=== PATIENT | male | born 1960 | race Caucasian/White ===

== ENCOUNTER 2016-06-01 08:52 | Inpatient (IN) ==
[2016-06-01] MEDS ORDERED: SODIUM CHLORIDE 0.9% 1,000 ML IV STA (09:59)
[2016-06-01 10:10] LABS: Basophils % 0.3 % (0.0-0.8); Eosinophils % 0.5 % (0.00-10.9); Hematocrit 48.6 VOL% (42.0-52.0); Hemoglobin 15.8 GM/DL (14.0-18.0); Immature Granulocytes % 0.5 %; Immature Granulocytes Absolute 0.04 #; Lymphocytes # 1.5 10*3/uL (1.4-4.0); Lymphocytes % 19.3 % (21.2-54.2); Mean Corpuscular HGB Conc 32.5 GM/DL (32-36); Mean Corpuscular Hemoglobin 30 PG (27-34); Mean Corpuscular Volume 90.8 FL (87-102); Mean Platelet Volume 9.8 FL (9.6-12.0); Monocytes # 0.6 10*3/uL (0.11-0.8); Monocytes % 7.9 % (1.7-12.7); Neutrophils # 5.6 10*3/uL (1.4-7.4); Neutrophils % 71.5 % (38.7-73.9); Platelet Count 242 T/CUMM (130-400); Red Blood Count 5.35 MC/CUMM (3.8-5.5); Red Cell Distribution Width 13.2 % (9.3-17.3); White Blood Count 7.8 T/CUMM (4-12)
[2016-06-01 10:16] LABS: Apearance,Urine CLEAR (Clear); Bilirubin,Urine Negative (Negative); Blood, Urine Negative (Negative); Glucose,Urine (UA) Negative (Negative); Ketones,Urine Negative (Negative); Mucus,Urine Occasional /LPF (Occasional); Nitrite,Urine Negative (Negative); Protein,Urine Negative; RBC,Urine 6 /HPF (0-4); Urine Color Yellow (Yellow); Urine Specific Gravity 1.023 (1.001-1.035); WBC,Urine 1 /HPF (0-6)
[2016-06-01 10:23] LABS: Alanine Aminotransferase 49 U/L (16-61); Albumin 4.3 G/DL (3.4-5.0); Alkaline Phosphatase 69 U/L (45-117); Aspartate Amino Transferase 21 U/L (0-37); Blood Urea Nitrogen 17 MG/DL (7-18); Calcium 8.9 MG/DL (8.5-10.1); Glucose 110 MG/DL (74-106); Osmolality,Calculated 288.8 MOS/KG (273-304); Potassium 4.3 MMOL/L (3.5-5.1); Sodium 144 MMOL/L (136-145); Total Protein 7.7 G/DL (6.4-8.3)
[2016-06-01 10:28] LABS: Ammonia 35 UMOL/L (11-32)
--- NOTE | 2016-06-01 10:28 | CT Report ---
History: Confusion, altered mental status Date: 06/01/2016 Study: CT head without contrast Comparison exam: CT head April 12, [address] sections were obtained through the head without IV contrast. Total DLP measures 1025.6 mGy*cm. The CT exam was performed using one or more of the following dose reduction techniques: Automated exposure control and adjustment of the mA and/or kV according to patient size. The ventricles are midline position without evidence of hydrocephalus. There is no mass or parenchymal hemorrhage. There is no gross CT evidence of acute cortical stroke. There is no extra-axial hematoma. There is no acute abnormality of the calvarium. There is [id number] mucosal thickening in the left sphenoid sinus with mild thickening in the partially visualized left maxillary sinus as well. Impression: No acute intracranial process compared to the previous study. Sinus disease which may be chronic PROCEDURE INTERPRETED AT [facility] DEPARTMENT OF RADIOLOGY Final Report Signed by: Dr. Yamel Crawford
[2016-06-01 10:29] LABS: Troponin I Only < 0.015 NG/ML (0.00-0.045)
--- NOTE | 2016-06-01 10:47 | Emergency Department Note ---
ISanti Gwan, am scribing for, and in the presence of, Román Cadet Jr., MD 10:05. IChichi Marvin Jr., MD, personally performed the services described in this documentation, ascribed by Roberth Hancock in my presence, and it is both accurate and complete . Arrival - Arrival Chief Complaint: Altered Mental Status Stated Complaint: weak,possible dehydration,confusion/shaking ED Nursing Triage Note: C/o confusion, chills, generalized weakness-onset last night. states patient saw Dr. Levy on Thursday and has been being treated for the flu. Mode of Arrival: Wheelchair Limitations: No Limitations Source: Patient, Significant other (), Old Records Reviewed, RN Notes Reviewed - History of Present Illness HPI Narrative: Pt is a 55 y/o male who presents to the ED with a c/o confusion, chills and pain all over with. Patient is accompanied by his . stated that pt was seen by JONAS Levy 6 days ago and was tested for the flu with a negative result. then stated that the pt was given 2 shots and 4 prescriptions. She continued to note that the pt began to feel better 4 days ago but then 2 days ago his symptoms returned and now he is not eating/drinking. She says that he has been clammy feeling as well. Patient confirmed that he hurts "everywhere". confirmed that pt barely walks, that he does not drive and that he had a fever of 102 last week when he went to [employer] office. At time of triage, pt's temperature was 98.8. Pt has a PMHx of HTN and BPH. Pt has a SHx of chewing tobacco and that he drinks beer. No other problems/complaints reported in ED. Onset (ago): day(s) Consistency: constant Severity: moderate Allergies/Adverse Reactions: Allergies Allergy/AdvReac Type Severity Reaction Status Date / Time No Known Allergies Allergy Verified 06/01/16 09:04 Home Medications: Home Medications Medication Instructions Recorded Confirmed Type Atorvastatin [Lipitor] 10 mg PO DAILY 06/01/16 06/01/16 History Benzonatate 200 mg PO TID PRN 06/01/16 06/01/16 History Cefdinir 300 mg PO Q12H 06/01/16 06/01/16 History Doxylamine/Phenylephrine [Poly 1 tablet PO Q6H PRN 06/01/16 06/01/16 History Hist Forte] Febuxostat [Uloric] 40 mg PO DAILY 06/01/16 06/01/16 History Guaifenesin/Codeine Phosphate 10 ml PO Q8H PRN 06/01/16 06/01/16 History [Guaifenesin-Codeine Syrup] Psyllium Husk [Metamucil] 0.52 gm PO DAILY 06/01/16 06/01/16 History Rabeprazole Sodium [Aciphex Tab] 20 mg PO DAILY 06/01/16 06/01/16 History Tamsulosin [Flomax] 0.4 mg PO BID 06/01/16 06/01/16 History Valsartan/Hydrochlorothiazide 1 each PO DAILY 06/01/16 06/01/16 History [Valsartan-Hctz 320-12.5 mg Tab] amLODIPine [Norvasc] 2.5 mg PO DAILY 06/01/16 06/01/16 History Review of System - Review of System 12 point system: reviewed and no additional remarkable complaints except as stated - Review of System Constitutional: Present: as per HPI, chills, other (clammy) Neurological: Present: as per HPI, headache, weakness, confusion Medical,Surgical,& Family Hx - Medical History Cardio: History of: Hypertension Genitourinary: History of: Prostate Problems (BPH) - Social History Smoking Status: Never smoker Frequency of Alcohol Use: Rarely Type of Drug Use: None Exam Vital Signs: Vital Signs Temperature 98.8 F 06/01/16 09:15 Pulse Rate 89 06/01/16 09:45 Respiratory Rate 20 06/01/16 09:45 Blood Pressure 137/89 06/01/16 09:45 O2 Sat by Pulse Oximetry 95 06/01/16 09:45 Course Course Narrative: Differential diagnosis: Intracerebral problems, dehydration, adverse drug reactions, reviewed review of past medical charts show patient is been seen for abdominal pain and back pain but no mention of any altered mental status. - Reevaluation(s) Reevaluation #1: Patient is unchanged. I talked to Dr. Albarran and he accepts admission for Dr. Quispe. He wants to hydrate him and he will see him soon. Time: 10:46 Results - Labs CBC & BMP: 06/01/16 09:09 06/01/16 09:09 Lab Results: I have reviewed the patients labs Labs: Laboratory Tests 06/01/16 06/01/16 09:09 09:59 Urine Color Yellow Urine Appearance Clear Urine pH 7.0 Ur Specific [place] 1.023 Urine Protein Negative Urine Glucose (UA) Negative Urine Ketones Negative Urine Blood Negative Urine Nitrate Negative Urine Bilirubin Negative Urine Urobilinogen 2.0 H Urine Leukocytes Negative Urine RBC 6 Urine WBC 1 Urine Mucus Occasional Ur Culture Indicated? Not indicated Serum Alcohol < 15 L Laboratory Tests 06/01/16 06/01/16 09:09 09:09 WBC 7.8 RBC 5.35 Hgb 15.8 Hct 48.6 MCV 90.8 MCH 30 MCHC 32.5 RDW 13.2 Plt Count 242 MPV 9.8 Neut % (Auto) 71.5 Lymph % (Auto) 19.3 L [place] % (Auto) 7.9 Eos % (Auto) 0.5 Baso % (Auto) 0.3 Neut # (Auto) 5.6 Lymph # (Auto) 1.5 [place] # (Auto) 0.6 Eos # (Auto) 0.0 Baso # (Auto) 0.0 Immature Gran % 0.5 Nucleated RBC % 0.0 Immature Gran # 0.04 Nucleated RBCs # 0.00 Sodium 144 Potassium 4.3 Chloride 108 H Carbon Dioxide 26 Anion Gap 14.3 BUN 17 Creatinine 1.10 GFR Calculation 95 BUN/Creatinine Ratio 15.00 Glucose 110 H Calculated Osmolality 288.8 Calcium 8.9 Total Bilirubin 0.90 AST 21 ALT 49 Alkaline Phosphatase 69 Ammonia 35 H Total Protein 7.7 Albumin 4.3 Globulin 3.4 Albumin/Globulin Ratio 1.2 Laboratory Tests 06/01/16 09:09 Lactic Acid 1.0 Troponin I < 0.015 - Diagnostic Findings Procedure: CT: report reviewed by me, image reviewed by me (CT Head: No acute intracranial process compared to the previous study. Sinus disease which may be chronic. I personally reviewed this CT also) Disposition Clinical Impression: Altered mental status, Body aches, Dehydration Case discussed with: patient, patient's family Disposition: Still a Patient Condition: Stable Time of Disposition: 10:46
--- NOTE | 2016-06-01 11:26 | XRay Report ---
History: Hypoxemia. Altered mental status Date: 06/01/2016 Study: Chest x-ray AP portable Comparison exam: April 12, 2016 There is continued cardiomegaly. The mediastinal contour is unchanged. The pulmonary vasculature is not engorged. The exam was performed in shallow inspiration. There is no sandoval consolidated pneumonia or gross pleural effusion. There is [id number] thoracic spondylosis. Impression: Shallow inspiration. No acute cardiopulmonary process or significant interval change otherwise PROCEDURE INTERPRETED AT [facility] DEPARTMENT OF RADIOLOGY Final Report Signed by: Dr. Yamel Crawford
[2016-06-01 11:50] LABS: ABG Base Excess 0.8 MMOL/L (-2.5-2.5); ABG Oxygen Saturation 95.7 % (95-100); ABG PO2 75.7 MM HG (80-95); ABG TCO2 20.6 MMOL/L (23-27); Allen Test Positive; Pt O2 Delivery Device Room Air
[2016-06-01] MEDS ORDERED: DEXTROSE 5% NACL 0.9% 1,000 ML IV SCH (12:20)
[2016-06-01] MEDS: LORazepam 1 MG TABLET PO PRN ×2 (14:43→22:30)
--- NOTE | 2016-06-01 15:30 | Family Practice History&Phys ---
Assessment and Plan (1) Anxiety Status: Acute Assessment and plan: We will give antianxiety medicine at least transiently as long as patient stays coherent Current Visit: Yes (2) Failure of outpatient treatment Status: Acute Assessment and plan: Patient admitted because of this and entering hospital due to symptoms of dehydration and altered mental status of unknown cause Current Visit: Yes (3) Altered mental status Status: Acute Assessment and plan: Hydrating patient continuing antibiotics and will start doxycycline at this time after we get blood cultures and other blood studies Current Visit: Yes (4) Body aches Status: Acute Assessment and plan: Palliative treatment at present Current Visit: Yes (5) Dehydration Status: Acute Assessment and plan: We will hydrate up with IV fluids Current Visit: Yes History of Present Illness Chief complaint: Confusion, dehydration, fatigue, altered mental status History of present illness: Mr. Gonzalez is a 55 year old male Who comes to the emergency room with the above complaints from the emergency room physician. He had some confusion and chills and pain which she described as just "achiness all over". His came with him to the emergency room. The story goes that she was seen this past week by nurse practitioner and he had a fever at that time about 101.2. He was tested for flu was negative and was subsequently given 2 shots including Rocephin. Apparently got better for a couple days and then now is worse again. He has been on antibiotics including cephalosporin. Today he is not running any fevers but he is a little confused and not eating and drinking. In the emergency room he was feeling clammy and states that he was very weak and could not walk. On examination with palpation of the belly he was alert and oriented and communicating with me coherently. He does have some myalgias and aches, is not running a fever at this time, (the nurse states she is checked him several times. He has a little agitated at times and this may just be from him trying to develop a fever. Nonetheless we are going to admit him, hydrate him, I will start him on antibiotics . Patient does work outside but does not know of any known arthropod exposure. He could have been bitten by some mosquitoes but knows of no tick bite. Nonetheless I am going to go ahead and get some lab titers as well as West Nile virus. I do not appreciate any rash on him. Vital signs are stable at present and his CBC and BMP are grossly normal. Urinalysis was negative as well and there is no elevation of his liver function test. Home Medications Medication Instructions Recorded Confirmed Type Atorvastatin [Lipitor] 10 mg PO DAILY 06/01/16 06/01/16 History Benzonatate 200 mg PO TID PRN 06/01/16 06/01/16 History Cefdinir 300 mg PO Q12H 06/01/16 06/01/16 History Doxylamine/Phenylephrine [Poly 1 tablet PO Q6H PRN 06/01/16 06/01/16 History Hist Forte] Febuxostat [Uloric] 40 mg PO DAILY 06/01/16 06/01/16 History Guaifenesin/Codeine Phosphate 10 ml PO Q8H PRN 06/01/16 06/01/16 History [Guaifenesin-Codeine Syrup] Psyllium Husk [Metamucil] 0.52 gm PO DAILY 06/01/16 06/01/16 History Rabeprazole Sodium [Aciphex Tab] 20 mg PO DAILY 06/01/16 06/01/16 History Tamsulosin [Flomax] 0.4 mg PO BID 06/01/16 06/01/16 History Valsartan/Hydrochlorothiazide 1 each PO DAILY 06/01/16 06/01/16 History [Valsartan-Hctz 320-12.5 mg Tab] amLODIPine [Norvasc] 2.5 mg PO DAILY 06/01/16 06/01/16 History Allergies Allergy/AdvReac Type Severity Reaction Status Date / Time No Known Allergies Allergy Verified 06/01/16 09:04 - Constitutional Constitutional: Present: as per HPI - EENT Eyes: Absent: blurry vision, diplopia Nose, mouth and throat: Absent: dysphagia, nasal congestion - Cardiovascular Cardiovascular: Absent: chest pain at rest, chest pain with activity, edema - Respiratory Respiratory: Present: cough (Left occasionally). Absent: dyspnea, wheezing - Gastrointestinal Gastrointestinal: Present: abdominal pain (Slight discomfort on the left side). Absent: constipation, dysphagia - Genitourinary Genitourinary: Absent: difficulty urinating, dysuria - Musculoskeletal Musculoskeletal: Present: arthralgias, myalgias - Neurological Neurological: Absent: headache(s) (No obvious meningitis., Patient has a history of neck surgery) - Psychiatric Psychiatric: Present: confusion (Per nurse report. He is alert and talking with me at this time coherently). Absent: depression - Endocrine Endocrine: Absent: cold intolerance Medical,Surgical,& Family Hx - Medical History Cardio: History of: Hypertension HEENT: History of: HEENT Problems (sinus surgery.) Genitourinary: History of: Prostate Problems (BPH takes flomax.) - Surgical History Thoracic Surgeries: Patient denies;: Organ Transplant Neurologic Surgeries: Patient denies: Neurologic Surgery Reproductive Surgeries: Patient denies;: Genitourinary Surgery Orthopedic Surgeries: Surgical HX of;: Orthopedic Surgery (partial knee 2010, 2013) - Family History Family History: Reports;: Family Cancer, Family Hypertension, Family Stroke - Social History Smoking Status: Never smoker Frequency of Alcohol Use: Frequently Type of Drug Use: None Exam - Constitutional Vitals: Period Temp Pulse Resp BP Sys/Elliott Pulse Ox Last 24 Hr 98.3 F 82-84 20-20 139-160/84-106 92-97 Exam: In general patient is stable hemodynamically. He does respond to me coherently , however is a little anxious. Is able to follow all commands. HEENT pupils equal reactive to light extraocular movements are intact neck is supple trachea midline I do not appreciate any pharyngitis. There is no angioedema or exudate. Cardiovascular rate is regular approximately 90 bpm. Less than 1/6 systolic ejection murmur no gallop or rub Lungs clear and General no wheezing rales or rhonchi. There is no bronchospasms at present Abdomen soft nondistended there may be a little mild tenderness along the left side of the abdomen but no peritoneal signs are appreciated. Extremities no clubbing cyanosis or edema, positive radial and dorsalis pedal pulses bilateral upper and lower extremities Skin I do not appreciate any rash at this time. Unable to fully unclothed patient at present but do not appreciate any tics and patient denies any known Neurologically no cranial nerve deficits appreciated no focal lateralizing signs motor or sensory problems or cerebellar findings are appreciated. (CT of the head was done without any findings) Results - Labs CBC & BMP: 06/01/16 09:09 06/01/16 09:09
[2016-06-01] MEDS ORDERED: cefTRIAXone 2,000 MG in SODIUM CHLORIDE 0.9% 100 ML IV SCH (16:00)
[2016-06-01] MEDS: DOXYCYCLINE HYCLATE INJ 100 MG in SODIUM CHLORIDE 0.9% 100 ML IV SCH (16:00)
[2016-06-01] MEDS: DEXTROSE 5% NACL 0.45% 1,000 ML IV SCH ×2 (16:07→22:29)
[2016-06-01] MEDS: DOCUSATE SODIUM 100 MG CAPSULE PO SCH (22:30)
[2016-06-02] MEDS: DOXYCYCLINE HYCLATE INJ 100 MG in SODIUM CHLORIDE 0.9% 100 ML IV SCH (04:02)
[2016-06-02] MEDS: DEXTROSE 5% NACL 0.45% 1,000 ML IV SCH ×2 (06:09→15:57)
--- NOTE | 2016-06-02 08:03 | Family Practice Progress Note ---
Family Practice - PN: Subj Interval history: Patient continues to be confused. His tells me he developed a flulike illness 1 week ago and developed confusion and disorientation 3 days ago. She has never seen him like this before. Patient's laboratory studies were fairly unremarkable. His showed me a picture of a rash that he had on his abdomen at the outset of this illness which is now subsided. He now has a petechial type rash on his back which may just be due to his confinement. He was started on Vibramycin and ceftriaxone which I certainly agree with. He was having a headache initially but now denies any headache and is not having any neck pain. He is not eating. CT brain reveal no acute abnormality. I am going to consult neurology. I think he needs a lumbar puncture and CT abdomen. Exam (Progress Note) - Constitutional Vitals: Period Temp Pulse Resp BP Sys/Elliott Pulse Ox Last 24 Hr 98.3 F-100.2 F 78-85 16-20 130-160/83-106 92-97 Exam: Objective a well-developed gentleman who is awake alert and obviously in distress. He is confused. Is able to follow simple commands but is unable to provide much in the way of history. Thankfully his was with him. Cardiovascular: Heart rate is regular without murmurs or gallops. Respiratory: Lungs clear to auscultation bilaterally. Abdomen: Abdomen is soft he has direct tenderness in his left lower quadrant. Neuro: Patient still has encephalopathic countenance. Is able to move all extremities. Skin: Patient has a petechial rash to his back. This does not adrianna. Results - Labs CBC & BMP: 06/01/16 09:09 06/01/16 09:09 Lab Results: I have reviewed the past 24 hour labs Assessment and Plan (1) Febrile illness, acute Status: Acute Assessment and plan: 06/02/2016: Will consult neurology. CT the abdomen and pelvis has been ordered. MRI of the brain is ordered and lumbar puncture has been ordered as well. Current Visit: Yes (2) Altered mental status Status: Acute Assessment and plan: 06/02/2016: Neurology consult, MRI of the brain, empiric therapy with acyclovir is begun. Current Visit: Yes
--- NOTE | 2016-06-02 09:27 | CT Report ---
Referring physician: Michael Quispe EXAM: CT abdomen and pelvis with contrast DATE: 06/02/2016 COMPARISON: 04/22/2016 REASON: Left lower quadrant pain TECHNIQUE: Axial images of the abdomen and pelvis were obtained after administration of 100 cc of Omnipaque 350 IV contrast. Oral contrast was also administered. Coronal and sagittal reformatted images were also provided. Total DLP is 1729.4 mGy*cm. FINDINGS: The heart remains enlarged with cardiac fat pads and chronic scarring at the visualized lung bases. Minimal dependent findings are noted. Fatty infiltration on the liver which remains normal in size with no masses, dilated ducts, or calcified gallstones. The spleen, pancreas left adrenal gland and left kidney have an unremarkable appearance. Persistent calcification in the right adrenal gland with stable right renal cysts with largest measuring 20 mm. The abdominal aorta is normal in size with no adjacent adenopathy. No dilatation of the small bowel. Diverticulosis of the colon with no significant diverticulitis, free air, or free fluid. The prostate measures 50 mm in diameter and indents the base the urinary bladder. Minimal diffuse urinary bladder wall thickening. Small fat-containing inguinal hernias. Degenerative changes noted with chronic deformity of the right ilium. IMPRESSION: Increased fat deposition including cardiac fat pads and fatty infiltration on the liver. Stable calcification in the right adrenal gland with small right renal cysts. Diverticulosis of the colon. Without oral contrast, it is more difficult to exclude possible early diverticulitis. Nonspecific enlargement of prostate with associated minimal bladder wall thickening. The CT exam was performed using one or more of the following dose reduction techniques: Automated exposure control and adjustment of the mA and/or kV according to patient size. PROCEDURE INTERPRETED AT [facility] DEPARTMENT OF RADIOLOGY Final Report Signed by: Dr. Rachelle Sanchez
--- NOTE | 2016-06-02 10:33 | Post Interventional Procedure ---
Pre-op diagnosis: Confusion, dehydration, Procedure: lumbar puncture Contrast: none Flouroscopy: 0.3 min Radiologist: Baldemar Moeller Anesthesia: local Specimens: other (10 mL clear colorless CSF) Estimated blood loss: none Complications: none Condition: stable Description/Findings: L2-L3 intersapce accessed without difficulty. Opening pressure 20 cm H2O. 10 mL clear, colorless CSF sent for analysis. sterile dressing applied. patient tolerated procedure well with no complications. Assessment and Plan - Time spent with patient Time spent with patient: Less than 30 minutes
--- NOTE | 2016-06-02 10:39 | Interventional Radiology Rpt ---
Procedure: IR lumbar puncture diagnostic Clinical history: 55-year-old male with fever, confusion, headache. Procedure: Informed consent was obtained prior to procedure. Formal timeout was performed. Maximum sterile barrier technique was employed. The patient was placed prone on the fluoroscopy table. The low back was prepped and draped in a sterile fashion. A midline lumbar puncture was then performed at the L2-L3 interspace using a 20-gauge spinal needle. Fluoroscopic guidance was used and a captured image documents the needle position. An opening pressure of 20 cm water was obtained. Subsequently, 10 milliliters of clear, colorless CSF was withdrawn and sent to laboratory. The spinal needle was removed and a bandage placed the puncture site. Fluoroscopy time: 0.3 minutes. Consultations: None. Impression: Technically successful diagnostic lumbar puncture as described. PROCEDURE INTERPRETED AT [facility] DEPARTMENT OF RADIOLOGY Final Report Signed by: Baldemar Moeller
[2016-06-02] MEDS: ACYCLOVIR INJ 1,000 MG in SODIUM CHLORIDE 0.9% 250 ML IV SCH ×2 (11:07→18:04)
[2016-06-02] MEDS: PANTOPRAZOLE 40 MG TABLET PO SCH (11:07)
[2016-06-02] MEDS: DOCUSATE SODIUM 100 MG CAPSULE PO SCH ×2 (11:07→20:27)
[2016-06-02 11:36] LABS: Lymphocytes,CSF 97 %; Monocytes,CSF 3 %; Red Blood Cell,CSF 10 C/CUMM; White Blood Cell,CSF 43 C/CUMM
[2016-06-02 11:37] LABS: Appearance,CSF Clear
--- NOTE | 2016-06-02 13:08 | Magnetic Resonance Report ---
History: Acute mental status changes with febrile illness Date: 06/02/2016 Study: MRI brain without contrast Comparison exam: CT head 06/01/2016 The brain was imaged in 3 planes on the 1.5 Kristan magnet without IV contrast, to include diffusion, T2, FLAIR, gradient echo, and T1-weighted sequences. The ventricles are midline in position without evidence of hydrocephalus. There is no Chiari I malformation. There is no gross pituitary mass. There is no evidence of acute ischemia on the diffusion sequence. There is no parenchymal hemorrhage or abnormal mass. There is no extra-axial hematoma. There is a normal flow void in the superior sagittal sinus. There is no gross flow abnormality in the inaja of Abbasi area. There is no obvious cerebellopontine angle mass. There is only a minimal amount of patchy increased FLAIR and T2 signal in the periventricular white matter without mass effect compatible with minimal changes of periventricular small vessel disease. There is some moderate mucosal thickening in the left sphenoid and maxillary sinuses with mild mucosal thickening in the ethmoid air cells bilaterally. Impression: No acute intracranial process. Mild sinus disease which may be chronic or allergic PROCEDURE INTERPRETED AT [facility] DEPARTMENT OF RADIOLOGY Final Report Signed by: Dr. Yamel Crawford
[2016-06-02] MEDS: ACETAMINOPHEN 500 MG TABLET PO PRN ×2 (13:36→19:51)
--- NOTE | 2016-06-02 14:19 | Neurology Consult Note ---
History of Present Illness History of present illness: Mr. Gonzalez is a 55 year old right-handed white gentleman admitted to the hospital with some increasing confusion and chills and pain which he described as just "achiness all over". His came with him to the emergency room. The story goes that he was seen this past week by nurse practitioner and he had a fever at that time about 101.2. He was tested for flu was negative and was subsequently given 2 shots including Rocephin. Apparently got better for a couple days and then now is worse again. He has been on antibiotics including cephalosporin. reported that he continued to stay confused and and was not eating and drinking. In the emergency room he was feeling clammy and reported that he was very weak and could not walk. MRI of the brain reveals no acute abnormalities. He underwent a spinal tap which revealed total protein 74 , glucose 67, WBC 43, lymphocytes 97%. Meningitis antigen panel is negative Home Medications Medication Instructions Recorded Confirmed Type Atorvastatin [Lipitor] 10 mg PO DAILY 06/01/16 06/01/16 History Benzonatate 200 mg PO TID PRN 06/01/16 06/01/16 History Cefdinir 300 mg PO Q12H 06/01/16 06/01/16 History Doxylamine/Phenylephrine [Poly 1 tablet PO Q6H PRN 06/01/16 06/01/16 History Hist Forte] Febuxostat [Uloric] 40 mg PO DAILY 06/01/16 06/01/16 History Guaifenesin/Codeine Phosphate 10 ml PO Q8H PRN 06/01/16 06/01/16 History [Guaifenesin-Codeine Syrup] Psyllium Husk [Metamucil] 0.52 gm PO DAILY 06/01/16 06/01/16 History Rabeprazole Sodium [Aciphex Tab] 20 mg PO DAILY 06/01/16 06/01/16 History Tamsulosin [Flomax] 0.4 mg PO BID 06/01/16 06/01/16 History Valsartan/Hydrochlorothiazide 1 each PO DAILY 06/01/16 06/01/16 History [Valsartan-Hctz 320-12.5 mg Tab] amLODIPine [Norvasc] 2.5 mg PO DAILY 06/01/16 06/01/16 History Allergies Allergy/AdvReac Type Severity Reaction Status Date / Time No Known Allergies Allergy Verified 06/01/16 09:04 12 point system: reviewed and no additional remarkable complaints except as stated Medical,Surgical,& Family Hx - Medical History Cardio: History of: Hypertension HEENT: History of: HEENT Problems (sinus surgery.) Genitourinary: History of: Prostate Problems (BPH takes flomax.) - Surgical History Thoracic Surgeries: Patient denies;: Organ Transplant Neurologic Surgeries: Patient denies: Neurologic Surgery Reproductive Surgeries: Patient denies;: Genitourinary Surgery Orthopedic Surgeries: Surgical HX of;: Orthopedic Surgery (partial knee 2010, 2013) - Family History Family History: Reports;: Family Cancer, Family Hypertension, Family Stroke - Social History Smoking Status: Never smoker Frequency of Alcohol Use: Frequently Type of Drug Use: None Exam - Constitutional Vitals: Period Temp Pulse Resp BP Sys/Elliott Pulse Ox Last 24 Hr 98 F-100.2 F 71-85 16-20 130-140/83-90 93-98 Exam: GENERAL: Patient is in no acute distress. NECK: Neck is supple. There is no JVD. No carotid bruits present. No thyroid masses. CVS: First and second heart sounds are normal. There is no S3 present. Regular rate and rhythm. RESPIRATORY: Lungs are clear to auscultation without any rales or rhonchi. ABDOMEN: Soft and non-tender. Bowel sounds are present. There is no hepatosplenomegaly. EXT: There is no palpable edema. Peripheral pulses are present. Skin: No rashes Central Nervous system: General: Alert, awake and Oriented x 3 Speech: Fluent Comprehension: Intact and normal Facial expressions: Normal Cranial Nerves: CN1/Olfactory: Normal CN II/ Optic: Normal, Visual Martinez unreliable CN III, and : CHRIS & EOMI CN V: Normal & intact CN VII: face is symmetric CNVIII: Normal CN XI/X/XI/XII: Intact and Normal Motor: Bulk and Tone is normal. Strength in the right 5/5 Strength in the left 5/5 Sensory: Grossly intact for all the modalities of PP, LT and temp sense Reflexes: 1+ and symmetrical Cerebellar function: Normal finger to nose and heel to mosqueda testing. Toes: Equivocal Gait: Not tested Results - Labs CBC & BMP: 06/01/16 09:06/01/16 09:09 Assessment and Plan (1) Viral meningitis Status: Acute Assessment and plan: Continue acyclovir Change Rocephin to 2 g IV every 8 Stop doxycycline Continue IV fluid Thank you for the consult Current Visit: Yes
[2016-06-02] MEDS: cefTRIAXone 2,000 MG in SODIUM CHLORIDE 0.9% 100 ML IV SCH (16:05)
[2016-06-03] MEDS: ACYCLOVIR INJ 1,000 MG in SODIUM CHLORIDE 0.9% 250 ML IV SCH ×3 (02:28→17:12)
[2016-06-03] MEDS: DEXTROSE 5% NACL 0.45% 1,000 ML IV SCH ×5 (04:08→21:04)
[2016-06-03] MEDS: ONDANSETRON 4 MG/2 ML VIAL IV PRN (04:09)
[2016-06-03 05:14] LABS: Basophils % 0.6 % (0.0-0.8); Eosinophils # 0.1 10*3/uL (0.0-0.87); Hematocrit 42.4 VOL% (42.0-52.0); Hemoglobin 13.7 GM/DL (14.0-18.0); Immature Granulocytes Absolute 0.07 #; Lymphocytes # 2.1 10*3/uL (1.4-4.0); Lymphocytes % 30.5 % (21.2-54.2); Mean Corpuscular HGB Conc 32.3 GM/DL (32-36); Mean Corpuscular Hemoglobin 30 PG (27-34); Mean Corpuscular Volume 92.6 FL (87-102); Mean Platelet Volume 9.4 FL (9.6-12.0); Monocytes # 0.8 10*3/uL (0.11-0.8); Monocytes % 12.3 % (1.7-12.7); Neutrophils # 3.7 10*3/uL (1.4-7.4); Neutrophils % 54.6 % (38.7-73.9); Platelet Count 240 T/CUMM (130-400); Red Blood Count 4.58 MC/CUMM (3.8-5.5); Red Cell Distribution Width 13.1 % (9.3-17.3); White Blood Count 6.8 T/CUMM (4-12)
[2016-06-03] MEDS ORDERED: PROMETHAZINE 25 MG/1 ML VIAL IM PRN (05:44)
[2016-06-03 05:55] LABS: Calcium 8.2 MG/DL (8.5-10.1); Osmolality,Calculated 287.7 MOS/KG (273-304); Potassium 3.9 MMOL/L (3.5-5.1)
[2016-06-03] MEDS: cefTRIAXone 2,000 MG in SODIUM CHLORIDE 0.9% 100 ML IV SCH ×2 (05:59→21:04)
[2016-06-03] MEDS ORDERED: BENZONATATE 100 MG CAPSULE PO PRN (07:00)
[2016-06-03] MEDS ORDERED: guaiFENesin/CODEINE 5 ML LIQUID PO PRN (07:00)
--- NOTE | 2016-06-03 07:08 | Family Practice Progress Note ---
Family Practice - PN: Subj Interval history: Patient said he had a difficult night and developed increased headache and nausea and vomiting. Has not had any further fever and he denies any lateralizing weakness or paresthesias. His herpes PCR is not back and his serological studies are still pending. Exam (Progress Note) - Constitutional Vitals: Period Temp Pulse Resp BP Sys/Elliott Pulse Ox Last 24 Hr 97.7 F-99.4 F 70-79 18-20 132-152/77-88 92-98 Exam: Objective reveals well-developed white male in no acute distress. He is still on his CPAP this morning. He is awake alert and able answer questions and follow commands accurately. He is complaining of bilateral ear pain Cardiovascular: Heart rate shrug without murmurs or gallops Respiratory: Lungs clear to auscultation bilaterally. Abdomen: Abdomen soft and nontender to palpation ENT: TMs are normal bilaterally. Results - Labs CBC & BMP: 06/03/16 04:40 06/03/16 04:39 Lab Results: I have reviewed the past 24 hour labs Assessment and Plan (1) Febrile illness, acute Status: Acute Assessment and plan: 06/02/2016: Will consult neurology. CT the abdomen and pelvis has been ordered. MRI of the brain is ordered and lumbar puncture has been ordered as well. 06/03/2016: Awaiting serological studies Current Visit: Yes (2) Altered mental status Status: Acute Assessment and plan: 06/02/2016: Neurology consult, MRI of the brain, empiric therapy with acyclovir is begun. 06/03/2016: Patient's sensorium is intact. He still having episodes of confusion however. I am adding Decadron as he is complained of headache and nausea. Current Visit: Yes
[2016-06-03] MEDS: PSYLLIUM POWDER 3.7 GM/PACK PO SCH (08:56)
[2016-06-03] MEDS: DEXAMETHASONE 4 MG/1 ML VIAL IV SCH ×2 (08:56→17:11)
[2016-06-03] MEDS: VALSARTAN 160 MG TABLET PO SCH (08:56)
[2016-06-03] MEDS: amLODIPine 2.5 MG TABLET PO SCH (08:56)
[2016-06-03] MEDS: hydroCHLOROthiazide 12.5 MG CAPSULE PO SCH (08:57)
[2016-06-03] MEDS: PANTOPRAZOLE 40 MG TABLET PO SCH (08:57)
[2016-06-03] MEDS: FEBUXOSTAT 80 MG TABLET PO SCH (08:57)
[2016-06-03] MEDS: ATORVASTATIN 10 MG TABLET PO SCH (08:57)
[2016-06-03] MEDS: DOCUSATE SODIUM 100 MG CAPSULE PO SCH ×2 (08:57→21:04)
[2016-06-03] MEDS: TAMSULOSIN 0.4 MG CAPSULE PO SCH ×2 (08:57→21:04)
[2016-06-03] MEDS ORDERED: RABEPRAZOLE SODIUM 20 MG PO SCH (09:00)
[2016-06-03 10:57] LABS: EBV Nuclear Ag Antibody Positive (Negative); EBV Virus IgG Ab Positive (Negative); EBV Virus IgM Ab Negative (Negative)
[2016-06-03] MEDS: ACETAMINOPHEN 500 MG TABLET PO PRN ×2 (12:47→21:04)
--- NOTE | 2016-06-03 15:05 | Neurology Progress Note ---
Neurology - PN : Subjective Interval history: Patient seems to be doing better. No new problems reported. No headaches reported. No more confusion today Kalpesh-Eagle virus serologies positive in the serum. Exam (Progress Note) - Constitutional Vitals: Period Temp Pulse Resp BP Sys/Elliott Pulse Ox Last 24 Hr 97.7 F-99.4 F 68-79 18-20 132-152/76-86 92-96 Exam: GENERAL: Patient is in no acute distress. NECK: Neck is supple. There is no JVD. No carotid bruits present. No thyroid masses. CVS: First and second heart sounds are normal. There is no S3 present. Regular rate and rhythm. RESPIRATORY: Lungs are clear to auscultation without any rales or rhonchi. ABDOMEN: Soft and non-tender. Bowel sounds are present. There is no hepatosplenomegaly. EXT: There is no palpable edema. Peripheral pulses are present. Skin: No rashes Central Nervous system: General: Alert, awake and Oriented x 3 Speech: Fluent Comprehension: Intact and normal Facial expressions: Normal Cranial Nerves: CN1/Olfactory: Normal CN II/ Optic: Normal, Visual Martinez unreliable CN III, and : CHRIS & EOMI CN V: Normal & intact CN VII: face is symmetric CNVIII: Normal CN XI/X/XI/XII: Intact and Normal Motor: Bulk and Tone is normal. Strength in the right 5/5 Strength in the left 5/5 Sensory: Grossly intact for all the modalities of PP, LT and temp sense Reflexes: 1+ and symmetrical Cerebellar function: Normal finger to nose and heel to mosqueda testing. Toes: Equivocal Gait: Not tested but can get up and walk Results - Labs CBC & BMP: 06/03/16 04:40 06/03/16 04:39 Assessment and Plan (1) Viral meningitis Status: Acute Assessment and plan: Continue acyclovir and Rocephin Consult PT and OT Current Visit: Yes
[2016-06-04] MEDS: ACYCLOVIR INJ 1,000 MG in SODIUM CHLORIDE 0.9% 250 ML IV SCH ×3 (02:07→17:13)
[2016-06-04] MEDS: DEXAMETHASONE 4 MG/1 ML VIAL IV SCH ×3 (02:08→17:13)
[2016-06-04] MEDS: DEXTROSE 5% NACL 0.45% 1,000 ML IV SCH ×3 (02:14→15:30)
--- NOTE | 2016-06-04 07:30 | Family Practice Progress Note ---
Family Practice - PN: Subj Interval history: Patient states she had a better night his headache is much improved. He is having some diarrhea which he attributes to his antibiotics. Patient denies any confusion disorientation this morning. He states he slept soundly last night. Exam (Progress Note) - Constitutional Vitals: Period Temp Pulse Resp BP Sys/Elliott Pulse Ox Last 24 Hr 97.5 F-98.9 F 64-82 18-20 115-143/68-80 92-96 Exam: Objective reveals well-developed white male in no acute distress. H appears to be feeling much better this morning and answers questions appropriately. He certainly has no confusion. Cardiovascular: Heart rate shrug without murmurs or gallops Respiratory: Lungs clear to auscultation bilaterally. Abdomen: Abdomen soft and nontender to palpation Results - Labs CBC & BMP: 06/03/16 04:40 06/03/16 04:39 Lab Results: I have reviewed the past 24 hour labs Assessment and Plan (1) Febrile illness, acute Status: Acute Assessment and plan: 06/02/2016: Will consult neurology. CT the abdomen and pelvis has been ordered. MRI of the brain is ordered and lumbar puncture has been ordered as well. 06/03/2016: Awaiting serological studies 06/04/2016: Serologies will probably take 10-14 days to return. Patient did have a positive Kalpesh-Eagle virus that was IgG antibody indicating remote infection. Current Visit: Yes (2) Altered mental status Status: Resolved Assessment and plan: 06/02/2016: Neurology consult, MRI of the brain, empiric therapy with acyclovir is begun. 06/03/2016: Patient's sensorium is intact. He still having episodes of confusion however. I am adding Decadron as he is complained of headache and nausea. 06/04/2016: Patient's sensorium returned to his normal. Current Visit: Yes
[2016-06-04] MEDS: PSYLLIUM POWDER 3.7 GM/PACK PO SCH (08:22)
[2016-06-04] MEDS: VALSARTAN 160 MG TABLET PO SCH (09:46)
[2016-06-04] MEDS: PANTOPRAZOLE 40 MG TABLET PO SCH (09:46)
[2016-06-04] MEDS: TAMSULOSIN 0.4 MG CAPSULE PO SCH ×2 (09:46→22:03)
[2016-06-04] MEDS: cefTRIAXone 2,000 MG in SODIUM CHLORIDE 0.9% 100 ML IV SCH ×2 (09:46→22:04)
[2016-06-04] MEDS: ATORVASTATIN 10 MG TABLET PO SCH (09:46)
[2016-06-04] MEDS: amLODIPine 2.5 MG TABLET PO SCH (09:46)
[2016-06-04] MEDS: DOCUSATE SODIUM 100 MG CAPSULE PO SCH ×2 (09:46→22:03)
[2016-06-04] MEDS: FEBUXOSTAT 80 MG TABLET PO SCH (09:46)
[2016-06-04] MEDS: hydroCHLOROthiazide 12.5 MG CAPSULE PO SCH (09:46)
[2016-06-04] MEDS: ONDANSETRON 4 MG/2 ML VIAL IV PRN (09:47)
--- NOTE | 2016-06-04 10:37 | Physician Query Form ---
CLICK EDIT DOCUMENT TO SELECT QUERY ANSWER --> OK --> SIGN Hafsa Ny RN Clinical Campaign Fundraiser W) [phone] (f) [phone] [email or web address] PROVIDERS: Make your selection(s) from the choices in EACH section by typing an "x" and enter comments in the comment section. Please use your independent medical judgment in providing your response. This request does not imply that any particular answer is desired or expected. CLINICAL INDICATORS: (Providers should not edit this section) Pt. admitted with viral meningitis. Based on documentation of "Patient continues to be confused" in 06/02/16 progress note. Progress note 06/04/16 states "He appears to be feeling much better this morning and answers questions appropriately. He certainly has no confusion". ACUITY: (x ) Acute ( ) Acute on Chronic ( ) Chronic ( ) Clinically unable to determine NATURE: ( ) Delirium due to general medical condition ( ) Dementia ( ) Encephalopathy ( ) Transient level of awareness ( ) Other, please specify: ( ) Clinically unable to determine Please indicate the underlying cause of the altered mental status (CHECK ALL THAT APPLY): ( ) Baseline dementia ( ) Alzheimer's disease ( ) Parkinson's disease ( ) Lewy body dementia ( ) Acute stroke ( ) Late effect of stroke ( ) Reactive (from emotional stress, psychological trauma) ( ) Due to narcotics/other drugs ( ) Post procedural delirium ( ) Transient ischemic attack ( ) Generalized cerebral edema ( ) Normal pressure hydrocephalus ( ) Psychiatric illness (x ) Other, please specify: ( ) Clinically unable to determine Please indicate if there is an infection, sepsis, dehydration or specific organ failure that is causing the dementia. Be specific with clarifying the relationship between that process and the mental status change. COMMENTS: Use of terms such as suspected, likely, or probable (associated with a specific diagnosis that is being evaluated, monitored, or treated as if it exists) are acceptable and can be restated in the discharge summary if not ruled out. MTDD
[2016-06-04] MEDS: ACETAMINOPHEN 500 MG TABLET PO PRN ×2 (15:43→22:12)
--- NOTE | 2016-06-04 17:29 | Neurology Progress Note ---
Neurology - PN : Subjective Interval history: Patient seems to be doing much better. No new problems reported. Participating in physical therapy. Walking outside in the hallway. Exam (Progress Note) - Constitutional Vitals: Period Temp Pulse Resp BP Sys/Elliott Pulse Ox Last 24 Hr 97.5 F-98.6 F 64-82 18-20 115-143/68-80 92-97 Exam: GENERAL: Patient is in no acute distress. NECK: Neck is supple. There is no JVD. No carotid bruits present. No thyroid masses. CVS: First and second heart sounds are normal. There is no S3 present. Regular rate and rhythm. RESPIRATORY: Lungs are clear to auscultation without any rales or rhonchi. ABDOMEN: Soft and non-tender. Bowel sounds are present. There is no hepatosplenomegaly. EXT: There is no palpable edema. Peripheral pulses are present. Skin: No rashes Central Nervous system: General: Alert, awake and Oriented x 3 Speech: Fluent Comprehension: Intact and normal Facial expressions: Normal Cranial Nerves: CN1/Olfactory: Normal CN II/ Optic: Normal, Visual Martinez unreliable CN III, and : CHRIS & EOMI CN V: Normal & intact CN VII: face is symmetric CNVIII: Normal CN XI/X/XI/XII: Intact and Normal Motor: Bulk and Tone is normal. Strength in the right 5/5 Strength in the left 5/5 Sensory: Grossly intact for all the modalities of PP, LT and temp sense Reflexes: 1+ and symmetrical Cerebellar function: Normal finger to nose and heel to mosqueda testing. Toes: Equivocal Gait: Normal Results - Labs CBC & BMP: 06/03/16 04:40 06/03/16 04:39 Assessment and Plan (1) Viral meningitis Status: Acute Assessment and plan: Continue acyclovir and Rocephin We will decide regarding the duration of IV acyclovir after PCR results. Continue PT and OT Current Visit: Yes
[2016-06-05] MEDS: DEXAMETHASONE 4 MG/1 ML VIAL IV SCH ×3 (00:41→17:13)
[2016-06-05] MEDS: DEXTROSE 5% NACL 0.45% 1,000 ML IV SCH ×4 (00:41→17:13)
[2016-06-05] MEDS: ACYCLOVIR INJ 1,000 MG in SODIUM CHLORIDE 0.9% 250 ML IV SCH ×3 (02:33→18:22)
--- NOTE | 2016-06-05 07:34 | Family Practice Progress Note ---
Family Practice - PN: Subj Interval history: Patient is doing well except has persistent diarrhea. His stool was negative for C. difficile. I will asked Dr. Atwood today if we can stop the Rocephin. His herpes PCR is going take 5-10 days to get the results from [facility] [place]. Patient states he feels 100% better and is not having any further headaches or nausea and vomiting. His serologies were negative for West Nile virus and Lyme disease. Exam (Progress Note) - Constitutional Vitals: Period Temp Pulse Resp BP Sys/Elliott Pulse Ox Last 24 Hr 97.9 F-99.2 F 55-76 18-20 132-142/74-78 91-97 Exam: Objective reveals well-developed white male in no acute distress. Patient states he feels back to his normal. Cardiovascular: Heart rate shrug without murmurs or gallops Respiratory: Lungs clear to auscultation bilaterally. Abdomen: Abdomen soft and nontender to palpation Results - Labs CBC & BMP: 06/03/16 04:40 06/03/16 04:39 Lab Results: I have reviewed the past 24 hour labs Assessment and Plan (1) Febrile illness, acute Status: Resolved Assessment and plan: 06/02/2016: Will consult neurology. CT the abdomen and pelvis has been ordered. MRI of the brain is ordered and lumbar puncture has been ordered as well. 06/03/2016: Awaiting serological studies 06/04/2016: Serologies will probably take 10-14 days to return. Patient did have a positive Kalpesh-Eagle virus that was IgG antibody indicating remote infection. Current Visit: Yes (2) Altered mental status Status: Resolved Assessment and plan: 06/02/2016: Neurology consult, MRI of the brain, empiric therapy with acyclovir is begun. 06/03/2016: Patient's sensorium is intact. He still having episodes of confusion however. I am adding Decadron as he is complained of headache and nausea. 06/04/2016: Patient's sensorium returned to his normal. 06/05/2016: Patient is back to his normal. We are awaiting his herpes PCR result. Current Visit: Yes
[2016-06-05] MEDS: cefTRIAXone 2,000 MG in SODIUM CHLORIDE 0.9% 100 ML IV SCH ×2 (08:53→21:40)
[2016-06-05] MEDS: FEBUXOSTAT 80 MG TABLET PO SCH (08:54)
[2016-06-05] MEDS: amLODIPine 2.5 MG TABLET PO SCH (08:54)
[2016-06-05] MEDS: TAMSULOSIN 0.4 MG CAPSULE PO SCH ×2 (08:54→21:41)
[2016-06-05] MEDS: hydroCHLOROthiazide 12.5 MG CAPSULE PO SCH (08:54)
[2016-06-05] MEDS: LACTOBACILLUS RHAMNOSUS GG CAPSULE PO SCH ×2 (08:54→21:41)
[2016-06-05] MEDS: PSYLLIUM POWDER 3.7 GM/PACK PO SCH ×2 (08:55→11:30)
[2016-06-05] MEDS: ATORVASTATIN 10 MG TABLET PO SCH (08:55)
[2016-06-05] MEDS: VALSARTAN 160 MG TABLET PO SCH (08:55)
[2016-06-05] MEDS: DOCUSATE SODIUM 100 MG CAPSULE PO SCH ×2 (08:55→21:44)
[2016-06-05] MEDS: PANTOPRAZOLE 40 MG TABLET PO SCH (08:55)
[2016-06-05] MEDS: ACETAMINOPHEN 500 MG TABLET PO PRN (17:12)
[2016-06-06] MEDS: DEXAMETHASONE 4 MG/1 ML VIAL IV SCH ×3 (01:46→16:48)
[2016-06-06] MEDS: DEXTROSE 5% NACL 0.45% 1,000 ML IV SCH ×4 (01:46→22:31)
[2016-06-06] MEDS: ACYCLOVIR INJ 1,000 MG in SODIUM CHLORIDE 0.9% 250 ML IV SCH ×3 (01:49→18:32)
--- NOTE | 2016-06-06 05:30 | Discharge Summary ---
<Sylvain Tristan - Last Filed: 06/07/16 09:09> Specialty Discharge - Follow Up or Referrals Follow up with: Rudy Quispe MD [Primary Care Provider] - 06/12/16 2:45 pm Discharge Plan - Discharge Data Disposition: Disch To Home/Self Care - Discharge Medications New Acyclovir Cap/Tab [Zovirax Cap/Tab] 800 mg PO 5X DAILY #20 tablet HYDROcodone/ACETAMIN 7.5-325 [Saxon 7.5-325] 1 tablet PO Q4H #20 tablet Lactobacillus Rhamnosus GG [Culturelle] 1 capsule PO BID #60 capsule Dexamethasone Tab [Decadron Tab] 4 mg PO BID W/MEALS #12 tablet Diphenoxylate/Atrop 2.5-0.025 [Lomotil Tab] 1 tablet PO Q6H PRN #14 tablet PRN Reason: Diarrhea Continue Psyllium Husk [Metamucil] 0.52 gm PO DAILY amLODIPine [Norvasc] 2.5 mg PO DAILY Valsartan/Hydrochlorothiazide [Valsartan-Hctz 320-12.5 mg Tab] 1 each PO DAILY Febuxostat [Uloric] 40 mg PO DAILY Benzonatate 200 mg PO TID PRN PRN Reason: Cough Atorvastatin [Lipitor] 10 mg PO DAILY Guaifenesin/Codeine Phosphate [Guaifenesin-Codeine Syrup] 10 ml PO Q8H PRN PRN Reason: Cough Rabeprazole Sodium [Aciphex Tab] 20 mg PO DAILY Tamsulosin [Flomax] 0.4 mg PO BID Discontinued Cefdinir 300 mg PO Q12H Doxylamine/Phenylephrine [Poly Hist Forte] 1 tablet PO Q6H PRN PRN Reason: Pain - Follow Up or Referral Follow Up: Rudy Quispe MD [Primary Care Provider] - 06/12/16 2:45 pm - Forms/Instructions Exam - Constitutional Vitals: Period Temp Pulse Resp BP Sys/Elliott Pulse Ox Last 24 Hr 97.6 F-98.9 F 56-82 18-20 114-150/63-87 93-137 Discharge Results Labs on day of discharge: Labs from last 24 hours 06/02/16 06/02/16 09:00 08:16 CSF Herpes I DNA (PCR) Negative CSF Herpes II DNA (PCR) Negative Q Fever Phase I IgG Ab Negative Q Fever Phase I IgM Ab Negative Q Fever Phase II IgG Ab Negative Q Fever Phase II IgM Ab Negative Spotted Fever Grp IgG Not detected Spotted Fever Grp IgM Not detected Rickettsia typhi IgG Not detected Rickettsia typhi IgM Not detected DS: Provider Date of admission: 06/01/16 10:47 Primary care physician: Rudy Quispe MD Attending physician on admission: Rudy Quispe MD Consults: 06/01/16 12:20 Consult to Case Mgmt/Social Srvs [CONS] Routine Reason for Case Mgmt/Social Srvs: Discharge Planning 06/01/16 12:22 Consult to Pharmacy [CONS] Routine Reason for Pharmacy Consult: Adjust Meds Renal Funct 06/02/16 07:58 Consult to Physician [CONS] Routine Comment: Consulting Provider: Juwan Atwood Person Notified: huma Date Notified: 06/02/16 Time Notified: 09:14 06/03/16 15:07 Consult to Occupational Therapy [CONS] Routine Reason for Occupational Therapy: Evaluate and Treat Consult to Physical Therapy [CONS] Routine Reason for Physical Therapy: Evaluate and Treat Discharging clinician: Sylvain Tristan DO <Rudy Quispe - Last Filed: 06/09/16 05:38> Hospital Course - Hospital Course Hospital Course: Patient is a 55-year-old white male was admitted to the emergency room with acute mental status changes, headache and fever. A diagnostic spinal tap was performed which revealed him to have 43 white cells all of which were lymphocytes. Patient was started on IV Rocephin and IV acyclovir. Patient has improved dramatically and basically symptom-free except for a little diarrhea from his antibiotics and very slight headache. He was begun on Decadron due to his headache and nausea. Bacterial antigens were negative on the CSF. He is negative West Nile virus titer. We are still awaiting his herpes PCR. I call the laboratory yesterday next states it takes anywhere from 5-10 days. Today is day 5. At any rate he certainly doing well clinically and I think be discharged home tomorrow. Diagnosis - Discharge Diagnosis (1) Febrile illness, acute Status: Resolved (2) Altered mental status Status: Resolved (3) Viral meningoencephalitis Status: Acute Discharge Plan - Discharge Data Condition at Discharge: Stable Discharge Diet: advance to your usual diet Activity: resume usual activities as tolerated Hygiene: no restrictions Weight Bearing at Discharge: full weight bearing Driving: no restrictions Contact your physician if you experience:: fever over 101 Exam - Constitutional Exam: Objective reveals well-developed white male in no acute distress. Patient states he feels back to his normal. Cardiovascular: Heart rate shrug without murmurs or gallops Respiratory: Lungs clear to auscultation bilaterally. Abdomen: Abdomen soft and nontender to palpation DS: Provider Expected date of discharge: 06/07/16
[2016-06-06] MEDS: DOCUSATE SODIUM 100 MG CAPSULE PO SCH ×2 (09:21→21:20)
[2016-06-06] MEDS: LACTOBACILLUS RHAMNOSUS GG CAPSULE PO SCH ×2 (09:22→21:20)
[2016-06-06] MEDS: VALSARTAN 160 MG TABLET PO SCH (09:23)
[2016-06-06] MEDS: hydroCHLOROthiazide 12.5 MG CAPSULE PO SCH (09:24)
[2016-06-06] MEDS: TAMSULOSIN 0.4 MG CAPSULE PO SCH ×2 (09:25→21:20)
[2016-06-06] MEDS: amLODIPine 2.5 MG TABLET PO SCH (09:26)
[2016-06-06] MEDS: PANTOPRAZOLE 40 MG TABLET PO SCH (09:26)
[2016-06-06] MEDS: FEBUXOSTAT 80 MG TABLET PO SCH (09:27)
[2016-06-06] MEDS: ATORVASTATIN 10 MG TABLET PO SCH (09:27)
[2016-06-06] MEDS: cefTRIAXone 2,000 MG in SODIUM CHLORIDE 0.9% 100 ML IV SCH ×2 (09:28→21:20)
[2016-06-06] MEDS: PSYLLIUM POWDER 3.7 GM/PACK PO SCH (10:43)
[2016-06-06] MEDS: ACETAMINOPHEN 500 MG TABLET PO PRN ×2 (12:58→21:22)
[2016-06-06 21:51] LABS: Q Fever IgM Phase I Screen NEGATIVE (NEGATIVE); Q Fever IgM Phase II Screen NEGATIVE (NEGATIVE)
[2016-06-07] MEDS: DEXAMETHASONE 4 MG/1 ML VIAL IV SCH ×2 (01:19→09:17)
[2016-06-07] MEDS: ACYCLOVIR INJ 1,000 MG in SODIUM CHLORIDE 0.9% 250 ML IV SCH (01:19)
[2016-06-07 09:02] VITALS: BP 143/83
[2016-06-07] MEDS: PANTOPRAZOLE 40 MG TABLET PO SCH (09:03)
[2016-06-07] MEDS: VALSARTAN 160 MG TABLET PO SCH (09:04)
[2016-06-07] MEDS: hydroCHLOROthiazide 12.5 MG CAPSULE PO SCH (09:04)
[2016-06-07] MEDS: LACTOBACILLUS RHAMNOSUS GG CAPSULE PO SCH (09:05)
[2016-06-07] MEDS ORDERED: DIPHENOXYLATE/ATROPINE 2.5-0.025 MG TABLET PO PRN (09:05)
[2016-06-07] MEDS: TAMSULOSIN 0.4 MG CAPSULE PO SCH (09:05)
[2016-06-07] MEDS: amLODIPine 2.5 MG TABLET PO SCH (09:05)
[2016-06-07] MEDS: FEBUXOSTAT 80 MG TABLET PO SCH (09:06)
[2016-06-07] MEDS: ATORVASTATIN 10 MG TABLET PO SCH (09:07)
[2016-06-07] MEDS: PSYLLIUM POWDER 3.7 GM/PACK PO SCH (09:08)
[2016-06-07] MEDS: DOCUSATE SODIUM 100 MG CAPSULE PO SCH (09:08)
[2016-06-07] MEDS: cefTRIAXone 2,000 MG in SODIUM CHLORIDE 0.9% 100 ML IV SCH (09:08)
--- NOTE | 2016-06-07 09:09 | Family Practice Progress Note ---
Family Practice - PN: Subj Interval history: Patient states that he feels better overall. Still has a slight headache but main complaint is diarrhea. All cultures have remained negative. Vitals are stable. Herpes PCR is still pending. Patient is requesting discharge. Dr. Quispe and made arrangements for him to be discharged at this a.m. if stable. Dr. Quispe is already arranged medications and follow-up. No new problems identified. Physical exam is stable. Will discharge have patient call or returned emergency room condition worsens or new problems develop, otherwise keep follow-up appointment. Exam (Progress Note) - Constitutional Vitals: Period Temp Pulse Resp BP Sys/Elliott Pulse Ox Last 24 Hr 97.6 F-98.9 F 56-82 18-20 114-150/63-87 93-137 Results - Labs CBC & BMP: 06/03/16 04:40 06/03/16 04:39 Specialty Discharge - Follow Up or Referrals Follow up with: Rudy Quispe MD [Primary Care Provider] - 06/12/16 2:45 pm
== END 2016-06-07 10:20 | disposition home or self-care (01) | DRG 99 ==
LOC: N.EDINP 08:52 → N.ED 08:52 → N.EDINP 12:14 → N.2E 12:23
PROVIDERS: ADMIT Family Medicine; ATTEND Family Medicine